=== PATIENT | male | born 1945 | race Caucasian/White ===

== ENCOUNTER 2023-09-10 10:11 | Inpatient (IN) ==
[2023-09-10] MEDS: 0.9 % SODIUM CHLORIDE 1,000 ML IV ONE (10:40)
[2023-09-10 11:07] LABS: Basophils # (Auto) 0.06 K/mcL (0.00-0.30); Basophils % (Auto) 0.4 % (0.0-2.0); Eosinophils # (Auto) 0.01 K/mcL (0.00-0.70); Eosinophils % (Auto) 0.1 % (0.0-7.0); Hematocrit 45.4 % (40.1-51.0); Hemoglobin 14.5 g/dL (13.7-17.5); Lymphocytes % (Auto) 8.5 % (15.5-49.0); Mean Cell Volume 86.6 fL (80.0-100.0); Mean Corpuscular HGB Conc 31.9 g/dL (31.0-36.0); Monocytes # (Auto) 0.78 K/mcL (0.10-0.90); Monocytes % (Auto) 5.5 % (1.0-12.0); Neutrophils % (Auto) 85.4 % (38.0-78.0); Platelet Count 434 K/mcL (140-440); RBC 5.24 M/mcL (4.63-6.08); Red Cell Distribution Width 13.5 % (11.5-14.5); WBC 14.2 K/mcL (4.5-11.0)
[2023-09-10 11:20] LABS: ALT/SGPT 7 U/L (<40); AST/SGOT 37 U/L (<40); Albumin/Globulin Ratio 1.1 (1.0-2.3); Alkaline Phosphatase 85 U/L (39-117); Bilirubin,Total 0.7 mg/dL (0.1-1.0); Blood Urea Nitrogen 14 mg/dL (8-23); Calcium 9.3 mg/dL (8.6-10.4); Carbon Dioxide 23 mmol/L (22-30); Chloride 103 mmol/L (96-108); Globulin 3.5 gm/dL (2.2-3.7); Glomerular Filtration Rate 82; Glucose 137 mg/dL (70-105)
[2023-09-10 11:31] LABS: Alcohol, Blood < 10.1 mg/dL; Alcohol,Blood < 0.010 gm/dL (<0.010)
[2023-09-10 12:03] LABS: Creatine Kinase 1033 U/L (24-195)
[2023-09-10 12:32] LABS: Appearance,Urine CLEAR (Clear); Bilirubin,Urine Negative (Negative); Color,Urine YELLOW; Culture Indicated,Urine No; Glucose,Urine (UA) Negative (Negative); Ketones,Urine Negative (Negative); Leukocyte Esterase,Urine Negative /uL (Negative); Mucus,Urine FEW /hpf; Nitrate,Urine Negative (Negative); Protein,Urine Negative (Negative); Specific Gravity,Urine 1.016 (1.000-1.035); Urine Blood 0.03 mg/dL (Negative); Urine RBC 1 /hpf (0-3); Urine Squamous Epithelial Cell 0 /hpf (0-4); Urine WBC < 1 /hpf (0-4); Urobilinogen,Urine Negative
[2023-09-10] MEDS: amLODIPine 5 MG TABLET PO ONE (14:49)
[2023-09-10] MEDS: LISINOPRIL 20 MG TABLET PO ONE (14:49)
[2023-09-10] MEDS ORDERED: POTASSIUM CHLORIDE 20 MEQ TABLET PO PRN ×2 (15:03)
[2023-09-10] MEDS ORDERED: POLYETHYLENE GLYCOL 3350 17 GM PACKET PO PRN (15:03)
[2023-09-10] MEDS ORDERED: ENALAPRILAT 1.25 MG/ML VIAL IV PRN (15:03)
[2023-09-10] MEDS ORDERED: POTASSIUM CHLORIDE 40 MEQ in DEXTROSE 5% IN WATER 500 ML IV PRN (15:03)
[2023-09-10] MEDS ORDERED: SENNOSIDES 1 TABLET PO PRN (15:03)
[2023-09-10] MEDS ORDERED: MAGNESIUM SULFATE 2 GM/50 ML BAG IV PRN (15:03)
[2023-09-10] MEDS: 0.9 % SODIUM CHLORIDE 10 ML SYRINGE IV SCH (15:17)
[2023-09-10] MEDS: 0.9 % SODIUM CHLORIDE 1,000 ML IV SCH (15:17)
[2023-09-10] MEDS: hydrALAZINE 20 MG/ML VIAL IV PRN (16:49)
[2023-09-10] MEDS: DOCUSATE SODIUM 100 MG CAPSULE PO SCH (20:59)
[2023-09-11] MEDS: ONDANSETRON 4 MG/2 ML VIAL IV PRN (03:02)
[2023-09-11 06:33] LABS: Basophils # (Auto) 0.06 K/mcL (0.00-0.30); Basophils % (Auto) 0.4 % (0.0-2.0); Eosinophils # (Auto) 0.01 K/mcL (0.00-0.70); Eosinophils % (Auto) 0.1 % (0.0-7.0); Hematocrit 47.5 % (40.1-51.0); Hemoglobin 15.6 g/dL (13.7-17.5); Lymphocytes % (Auto) 8.6 % (15.5-49.0); Mean Cell Volume 83.9 fL (80.0-100.0); Mean Corpuscular HGB Conc 32.8 g/dL (31.0-36.0); Mean Platelet Volume 9.6 fL (8.8-12.5); Monocytes # (Auto) 0.94 K/mcL (0.10-0.90); Monocytes % (Auto) 6.2 % (1.0-12.0); Neutrophils % (Auto) 84.3 % (38.0-78.0); Platelet Count 379 K/mcL (140-440); RBC 5.66 M/mcL (4.63-6.08); Red Cell Distribution Width 13.8 % (11.5-14.5); WBC 15.2 K/mcL (4.5-11.0)
[2023-09-11] MEDS: ENOXAPARIN 40 MG/0.4 ML SYRINGE SQ SCH (08:57)
[2023-09-11] MEDS: LOSARTAN 50 MG TABLET PO SCH (08:58)
[2023-09-11] MEDS: ALLOPURINOL 100 MG TABLET PO SCH (08:59)
[2023-09-11] MEDS ORDERED: amLODIPine 5 MG TABLET PO SCH (09:00)
[2023-09-11 09:22] LABS: ALT/SGPT < 5 U/L (<40); AST/SGOT 40 U/L (<40); Albumin 3.5 gm/dL (3.2-5.2); Albumin/Globulin Ratio 1.1 (1.0-2.3); Alkaline Phosphatase 76 U/L (39-117); Bilirubin,Direct 0.2 mg/dL (<0.3); Bilirubin,Total 0.7 mg/dL (0.1-1.0); Blood Urea Nitrogen 13 mg/dL (8-23); Carbon Dioxide 22 mmol/L (22-30); Chloride 105 mmol/L (96-108); Globulin 3.3 gm/dL (2.2-3.7); Glomerular Filtration Rate 86; Glucose 136 mg/dL (70-105); Lactate Dehydrogenase 242 U/L (135-225); Phosphorous 2.5 mg/dL (2.5-4.5); Triglycerides 64 mg/dL (<150); Uric Acid 4.7 mg/dL (2.5-8.0)
[2023-09-11 09:39] LABS: Lymphocytes % 9 % (15-49); Monocytes % (Manual) 3 % (1-12); Platelet Estimate NORMAL (Normal); RBC Morphology NORMAL (Normal); Segmented Neutrophils % 88 % (38-78)
[2023-09-12] MEDS: ACETAMINOPHEN 325 MG TABLET PO PRN (03:41)
[2023-09-12 05:38] LABS: Basophils # (Auto) 0.06 K/mcL (0.00-0.30); Basophils % (Auto) 0.4 % (0.0-2.0); Eosinophils # (Auto) 0.06 K/mcL (0.00-0.70); Eosinophils % (Auto) 0.4 % (0.0-7.0); Hematocrit 44.9 % (40.1-51.0); Hemoglobin 14.2 g/dL (13.7-17.5); Lymphocytes # (Auto) 1.72 K/mcL (1.50-4.80); Lymphocytes % (Auto) 11.7 % (15.5-49.0); Mean Cell Volume 87.2 fL (80.0-100.0); Mean Corpuscular HGB Conc 31.6 g/dL (31.0-36.0); Monocytes # (Auto) 1.25 K/mcL (0.10-0.90); Monocytes % (Auto) 8.5 % (1.0-12.0); Neutrophils % (Auto) 78.7 % (38.0-78.0); Platelet Count 395 K/mcL (140-440); RBC 5.15 M/mcL (4.63-6.08); Red Cell Distribution Width 14.2 % (11.5-14.5); WBC 14.7 K/mcL (4.5-11.0)
[2023-09-13 05:32] LABS: Basophils # (Auto) 0.08 K/mcL (0.00-0.30); Basophils % (Auto) 0.8 % (0.0-2.0); Eosinophils % (Auto) 1.9 % (0.0-7.0); Hematocrit 41.9 % (40.1-51.0); Lymphocytes # (Auto) 2.01 K/mcL (1.50-4.80); Lymphocytes % (Auto) 19.5 % (15.5-49.0); Mean Platelet Volume 8.9 fL (8.8-12.5); Monocytes # (Auto) 0.93 K/mcL (0.10-0.90); Neutrophils % (Auto) 68.5 % (38.0-78.0); Platelet Count 362 K/mcL (140-440); RBC 4.71 M/mcL (4.63-6.08); Red Cell Distribution Width 14.1 % (11.5-14.5); WBC 10.3 K/mcL (4.5-11.0)
== END 2023-09-13 11:10 | DRG 558 ==
LOC: ED 10:11 → MEDSUR 14:50
PROVIDERS: ADMIT Internal Medicine; ATTEND Internal Medicine